=== PATIENT | female | born 1960 | race Asian ===

== ENCOUNTER 2017-01-31 10:02 | Outpatient (CLI) | payer OTHER | END 2017-01-31 20:46 | disposition home or self-care (01) | LOC: SMA 10:02 | PROVIDERS: ATTEND Internal Medicine | DX: Z12.31 Encounter for screening mammogram for malignant neoplasm of breast (principal) | CPT/HCPCS: G0202 ==

== ENCOUNTER 2023-10-05 12:49 | Emergency (ER) | payer OTHER ==
[~2023-10-05] VITALS: Ht 157.5 cm; Wt 77.1 kg
[2023-10-05 13:02] VITALS: BP_SYST 170; PULSE 78; RESP 18; TEMP 97; O2SAT 97
[2023-10-05 13:40] LABS: INFLUENZA TYPE A Negative (NEGATIVE); INFLUENZA TYPE B NEGATIVE (NEGATIVE)
[2023-10-05] MEDS ORDERED: ALBMDI INH (13:47)
[2023-10-05] MEDS ORDERED: PSEU30TA36 PO (13:47)
[2023-10-05 14:00] VITALS: BP_SYST 155; PULSE 72; RESP 17; TEMP 97; O2SAT 98
== END 2023-10-05 13:45 | disposition home or self-care (01) ==
LOC: SED 12:49
DX: J40 Bronchitis, not specified as acute or chronic (principal); Z20.822 Contact with and (suspected) exposure to COVID-19
CPT/HCPCS: 36415; 71045; 99284